=== PATIENT | male | born 1960 ===

== ENCOUNTER 2016-12-24 18:53 | Emergency (ER) | payer OTHER ==
[2016-12-24 19:53] VITALS: BP 127/81
--- NOTE | 2016-12-24 20:06 | UC ---
Elbow Pain - HPI Summary HPI Summary: complaint of right swollen elbow that started today elbow is painful denies any trauma constantly painful aching pain that is non radiating pain painful when he leans on something denies fever hasn't taken any medication for symptoms - History of Current Complaint Chief Complaint: UCUpperExtremity Stated Complaint: ELBOW COMPLAINT Time Seen by Provider: 12/24/16 19:58 Hx Obtained From: Patient - Allergies/Home Medications Allergies/Adverse Reactions: Allergies Allergy/AdvReac Type Severity Reaction Status Date / Time No Known Allergies Allergy Verified 12/24/16 19:46 Home Medications: Home Medications Aspirin Low Dose CHEW TAB* [Aspirin Low Dose TAB*] 81 mg PO DAILY 12/24/16 [ History Confirmed 12/24/16] Ilqkzdbdfvm-Deezofkkjmq-Kqo C- [Glucosamine Chondroitin] 1 tab PO DAILY [History Confirmed 12/24/16] Multivitamins/Minerals TAB* [Thera M Plus TAB*] 1 tab PO DAILY 12/24/16 [ History Confirmed 12/24/16] Omeprazole CAP* [Prilosec CAP* 20 MG] 40 mg PO DAILY 12/24/16 [History Confirmed 12/24/16] Vitamin B Complex TAB* [Complex B-100*] 1 tab PO DAILY 12/24/16 [History Confirmed 12/24/16] PMH/Surg Hx/FS Hx/Imm Hx Previously Healthy: Yes - sleep apnea - Surgical History Surgical History: None - Family History Known Family History: Positive: Cardiac Disease - father, Diabetes - father, Other - copd - mother - Social History Occupation: Employed Full-time Lives: With Family Alcohol Use: None Substance Use Type: None Smoking Status (MU): Never Smoked Tobacco Review of Systems Constitutional: Negative Skin: Negative Eyes: Negative ENT: Negative Respiratory: Negative Cardiovascular: Negative Gastrointestinal: Negative Genitourinary: Negative Motor: Negative Neurovascular: Negative Musculoskeletal: Other: - righ elbow pain Neurological: Negative Psychological: Negative All Other Systems Reviewed And Are Negative: Yes Physical Exam Triage Information Reviewed: Yes Appearance: No Pain Distress, Well-Nourished Vital Signs: Initial Vital Signs Temp 98.2 F 12/24/16 19:47 Pulse 77 12/24/16 19:47 Resp 16 12/24/16 19:47 BP 127/81 12/24/16 19:47 Pulse Ox 97 12/24/16 19:47 Vital Signs Reviewed: Yes Eyes: Positive: Conjunctiva Clear ENT: Positive: Pharynx normal, TMs normal Neck: Positive: No Lymphadenopathy Respiratory: Positive: Lungs clear, Normal breath sounds, No respiratory distress, No accessory muscle use Cardiovascular: Positive: RRR, No Murmur, Pulses Normal Abdomen Description: Positive: Nontender, Soft Bowel Sounds: Positive: Present Musculoskeletal: Positive: Other: - RUE-No bony deformities, tenderness and ertyema, edema warm to touch in olecranon, medial, lateral epicondyle elbow. Full ROM upon flexion and extension. Neurological: Positive: Alert Psychological Exam: Normal Skin Exam: Normal Procedures - Incision and Drainage Anesthesia: Lidocaine Instrument(s): Needle Packing: Other - right elbow cleansed with betadyne, lidocaine injected into elbow, 18G needle inserted into bursa but no fluid expressed, pt tolerated well , pressure dressing applied, procedure completed by Dr Hernández Elbow Pain Course/Dx - Differential Dx/Diagnosis Differential Diagnosis/HQI/PQRI: Bursitis, Cellulitis, Infection, Joint Effusion Provider Diagnoses: right elbow bursitis Discharge - Discharge Plan Condition: Stable Disposition: HOME Prescriptions: Naproxen TAB* [Naprosyn 250 mg TAB*] 500 mg PO Q12H #114 tab Patient Education Materials: Elbow Bursitis (ED) Referrals: Danelle Davidson MD [Medical Doctor] - Additional Instructions: Please start naproxen as directed Increase fluids and rest Please review your discharge instructions. If your symptoms do not improve please call your primary care provider or return to urgent care.
[2016-12-24] MEDS ORDERED: Lidocaine 2% W/EPI 1:100,000* 20 ML MDV INJ ONE (20:12)
== END 2016-12-24 20:58 | disposition home or self-care (01) ==
LOC: UCCORT 18:53
DX: M70.31 Other bursitis of elbow, right elbow (principal); Z79.82 Long term (current) use of aspirin
CPT/HCPCS: 20605; 99202; G0463

== ENCOUNTER 2017-02-14 07:34 | Day surgery (SDC) | payer OTHER ==
[~2017-02-14 07:34] MED LIST: Buffered Lidocaine 0.9% SYRIN* 5 ML/SYR SYRINGE INTRADERM ONE; Dexamethasone IV* 4 MG/ML 1 ML (4 MG) IV SLOW PU ONE; Famotidine IV* 10 MG/ML 2 ML (20 mg) IV ONE; Scopolamine 1.5 mg* PATCH TRANSDERM ONE
[2017-02-14] MEDS ORDERED: Famotidine IV* 10 MG/ML 2 ML (20 mg) ONE (07:58)
[2017-02-14] MEDS ORDERED: Dexamethasone IV* 4 MG/ML 1 ML (4 MG) ONE (07:58)
[2017-02-14] MEDS ORDERED: Scopolamine 1.5 mg* PATCH ONE (07:58)
[2017-02-14] MEDS ORDERED: ceFAZolin 2 GM PREMIX(*) 2 GM/50 ML BAG IVPB ONE (07:58)
[2017-02-14] MEDS ORDERED: Bupivacaine 0.25% SDV* 30 ML ONE (09:42)
[2017-02-14] MEDS ORDERED: Lidocaine 2% PF * 5 ML VIAL ONE (09:51)
[2017-02-14] MEDS ORDERED: Propofol* 10 MG/ML 20 ML BTL IV PUSH ONE (09:51)
[2017-02-14] MEDS ORDERED: fentaNYL* 50 MCG/ML 2 ML VIAL (100 MCG VIAL) ONE ×3 (09:51→11:46)
[2017-02-14] MEDS ORDERED: Ketorolac INJ* 30 MG/ML 1 ML VIAL ONE (10:15)
[2017-02-14] MEDS ORDERED: Ondansetron INJ* 2 MG/ML VIAL ONE (10:31)
[2017-02-14] MEDS ORDERED: oxyCODONE/Acetamin 5/325 MG* TAB PO PRN (10:39)
[2017-02-14] MEDS ORDERED: fentaNYL* 50 MCG/ML 2 ML VIAL (100 MCG VIAL) IV PRN (10:39)
[2017-02-14] MEDS ORDERED: PROCHLORPERAZINE INJ 5 MG/ML 2 ML VIAL IV PRN (10:39)
[2017-02-14] MEDS ORDERED: PROCHLORPERAZINE INJ 5 MG/ML 2 ML VIAL ONE (13:01)
[2017-02-14] MEDS ORDERED: traMADol TAB* 50 MG ONE (13:31)
[2017-02-14] MEDS ORDERED: Acetaminophen TAB* 325 MG ONE (13:31)
[2017-02-14 14:00] VITALS: BP 144/81
--- NOTE | 2017-02-15 00:37 | OP ---
DATE OF OPERATION: 02/14/17 - [facility] DATE OF : 64 SURGEON: Morgan Aguirre MD MAC DEVELOPER: SHANA Barr. An assistant laboratory director was needed for the entirety of the procedure to aide with positioning the arm and retraction. ANESTHESIOLOGIST: Dr. Patrick Rubio. ANESTHESIA: General. PRE-OP DIAGNOSIS: Right olecranon bursitis and triceps tendon enthesopathy. POST-OP DIAGNOSES: 1. Right elbow olecranon bursitis. 2. Bone cyst, right olecranon process. 3. Partial central detachment of distal triceps tendon. OPERATIVE PROCEDURE: 1. Right elbow olecranon bursectomy. 2. Curettage of right olecranon process bone cyst. 3. Repair of distal triceps tendon central partial detachment. INDICATIONS: Brady has had over a month of severe posterior right elbow pain. It is very difficult for him to move the elbow. He had developed a large olecranon bursitis in association with this. He had a couple of attempted aspirations by his primary care physician. He had seen my partner, Dr. Merritt, who had started him on antiinflammatory medications and had him compress and ice the area. He was supposed to follow up with me in a few weeks, but he then come in the following week after seeing Dr. Merritt because his pain was severe and he wanted to be seen sooner. His x-rays had shown some enthesopathy at the triceps insertion and the olecranon process. I had talked to him about doing a right elbow olecranon bursectomy and exploring the distal part of the triceps tendon and repairing anything as needed. He elected to proceed. ESTIMATED BLOOD LOSS: 5 mL. COMPLICATIONS: None. FINDINGS: After the bursectomy was performed, there was a bone cyst readily apparent in the posterior olecranon process. I curetted the contents of the cyst out and there was a central full thickness detachment of the triceps tendon. The triceps tendon was clearly still attached medially and laterally. DESCRIPTION OF PROCEDURE: Brady was seen in the preoperative holding area. The correct site, side, and procedure were identified. We came back to the operating room, the arm was prepped and draped in usual fashion. A formal time- out was performed. He had been placed in the lateral decubitus position with the arm draped over a roll of well-secured pillows. All the appropriate bony prominences and nerves were well padded. I began by exsanguinating the extremities. The Esmarch and the tourniquet was inflated to 250 mmHg. I then the dermis from the underlying bursal tissue, which had the appearance of being very chronically inflamed. I worked medially and laterally, taking care medially not to violate the deep fascia and keep the ulnar nerve protected. The olecranon bursa was excised in its entirety right off the periosteum of the proximal ulna and then as I continued on proximally, the tissue became very degenerative became more organized and healthy appearing, again more proximally as I got past the elbow joint to the more proximal healthy triceps tendon fascia. Once I had fully excised the olecranon bursa, this was passed off as specimen. I then cleaned things up a little bit more distally and there was a significant amount of soft tissue protruding from a lesion in the olecranon process. I took the curette out and I cleaned out the contents of this cyst and it was centrally located in the olecranon process and tracked back proximally towards the tip of the olecranon. It did not go deep towards the articular surface, but it was 1 cm in its width and about 1 cm to 1.5 cm deep. I completely curetted this out until there was no cyst contents left. I then brought in the mini C-arm and I visualized the area of the cyst on the fluoroscopy using a freer to ilene the proximal and distal aspects of the cyst. I then passed my freer just superficial to the cyst on the cortex of the olecranon and passed it all the way around down towards the joint. There was a clear 1 to 2 cm width where the triceps tendon had fully detached. I went ahead and cleaned this all up sharply until I had good visualization. I then took my 2.5 drill bit and made 2 parallel drill holes from the proximal aspect of the olecranon out through the posteromedial and posterolateral cortices of the ulna distally in preparation for repair of the triceps tendon. I then took two #2 FiberWire sutures and placed 2 whip stitches several centimeters up and back down the triceps tendon. I then took 1 tail of my medial whip stitch and 1 tail of my lateral whip stitch and passed them down one bone tunnel and then took the other two tails and passed them down the other bone tunnel. I then had my assistant laboratory director hold the arm out in extension while I tightened the sutures and tied them off sequentially. This brought the distal aspect of the triceps down into excellent apposition olecranon process. I used an 0 Ti- Cron to place a couple of akjuln-hp-lyfen sutures to the adjacent periosteum and just to smooth off the superficial margin of the repair. I then looked at the remainder of the bone cyst and made a decision whether or not to harvest, I am not seeing some distal radius bone graft to pack the lesion with. Ultimately, I decided it was not necessary and so I went ahead and irrigated out the wound. The hemostasis was achieved with the Bovie cautery. The subcutaneous tissue was reapproximated with 3-0 Polysorb suture. Skin was closed with 3-0 nylon suture. 0.25% Marcaine was infiltrated into the operative area. The wound was dressed with Xeroform, 4x4, ABD, and then sterile Webril followed by a posterior slab with a lateral buttress. Tourniquet was deflated during the application of the dressings. The hand pinked up immediately. The arm was splinted in just 20 to 30 degrees of flexion of the elbow. The wrist and fingers were left free. He was then woken up and taken to recovery room in stable condition. [id number]/[facility]PS #: [id number] MTDD
--- NOTE | 2017-02-16 15:45 | RAD ---
INDICATION: RIGHT elbow surgery. COMPARISON: February 01, 2017 radiographs. TECHNIQUE: 22 seconds fluoroscopy. FINDINGS: Spot images document a metallic instrument at the level of the rectum on process. IMPRESSION: Procedural fluoroscopy. CPT II Codes: 6045F
[2017-02-17] MEDS ORDERED: Scopolomine PATCH Remove* 1 NOTE MISC PATCH OFF ONE (06:00)
== END 2017-02-14 13:53 | disposition home or self-care (01) ==
LOC: OREAST 07:34
PROVIDERS: ATTEND Orthopaedic Surgery Hand Surgery
DX: M70.21 Olecranon bursitis, right elbow (principal); M85.621 Other cyst of bone, right upper arm; S53.491A Other sprain of right elbow, initial encounter; X58.XXXA Exposure to other specified factors, initial encounter; Y92.9 Unspecified place or not applicable; G47.33 Obstructive sleep apnea (adult) (pediatric)
CPT/HCPCS: 76000; 88304; A9270-GY; J0690; J0780; J1100; J1885; J2405; J2704; J3010

== ENCOUNTER 2017-03-02 06:11 | Inpatient (IN) | payer OTHER ==
[~2017-03-02 06:11] MED LIST changes: -Dexamethasone IV* 4 MG/ML 1 ML (4 MG) IV SLOW PU ONE; -Famotidine IV* 10 MG/ML 2 ML (20 mg) IV ONE; -Scopolamine 1.5 mg* PATCH TRANSDERM ONE; +Sodium Citrate/Citric Acid* 15 ML UDC PO ONE
[2017-03-02] MEDS ORDERED: Buffered Lidocaine 0.9% SYRIN* 5 ML/SYR SYRINGE ONE (06:12)
[2017-03-02] MEDS ORDERED: Sodium Citrate/Citric Acid* 15 ML UDC ONE (06:12)
[2017-03-02] MEDS ORDERED: Bupivacaine 0.25% SDV* 30 ML ONE (07:32)
[2017-03-02] MEDS ORDERED: Lidocaine 2% PF * 5 ML VIAL ONE (07:56)
[2017-03-02] MEDS ORDERED: fentaNYL* 50 MCG/ML 2 ML VIAL (100 MCG VIAL) ONE ×3 (07:56→10:19)
[2017-03-02] MEDS ORDERED: Propofol* 10 MG/ML 20 ML BTL IV PUSH ONE ×2 (07:56→08:33)
[2017-03-02] MEDS ORDERED: Vancomycin(*) 2,000 MG in NS 0.9% 500 ML BAG* 500 ML IVPB ONE (08:00)
[2017-03-02] MEDS ORDERED: DiMENhydriNATE IV* 50 MG/ML VIAL IV PUSH PRN (09:05)
[2017-03-02] MEDS ORDERED: Ketorolac INJ* 30 MG/ML 1 ML VIAL ONE (09:19)
[2017-03-02] MEDS ORDERED: Labetalol IV* 5 MG/ML 20 ML VIAL ONE (09:19)
[2017-03-02] MEDS ORDERED: Ondansetron INJ* 2 MG/ML VIAL ONE (09:19)
[2017-03-02] MEDS ORDERED: Acetaminophen TAB* 325 MG PO PRN (09:52)
[2017-03-02] MEDS ORDERED: traZODone TAB* 50 MG TAB PO PRN (09:52)
[2017-03-02] MEDS ORDERED: Ondansetron INJ* 2 MG/ML VIAL IV PRN (09:52)
[2017-03-02] MEDS ORDERED: Polyethylene Glycol 3350* 17 GM PACKET PO PRN (09:52)
[2017-03-02] MEDS ORDERED: Morphine INJ* 2 MG/ML 1 ML SYRINGE IV PRN (09:52)
[2017-03-02] MEDS ORDERED: Magnesium Hydroxide LIQ* 30 ML UDC PO PRN (09:52)
[2017-03-02] MEDS ORDERED: oxyCODONE TAB* 5 MG TAB PO PRN (09:52)
[2017-03-02] MEDS ORDERED: diPHENhydraMINE IV* 50 MG/ML 1 ml VIAL (BENADRYL) IV PRN (09:52)
[2017-03-02] MEDS ORDERED: Vancomycin(*) 0 MG in NS 0.9% 250 ML* 250 ML IVPB SCH (10:00)
[2017-03-02] MEDS ORDERED: oxyCODONE/Acetamin 5/325 MG* TAB ONE (10:19)
[2017-03-02] MEDS: oxyCODONE/Acetamin 5/325 MG* TAB PO PRN ×4 (10:21→20:38)
[2017-03-02] MEDS: fentaNYL* 50 MCG/ML 2 ML VIAL (100 MCG VIAL) IV PRN ×2 (10:22→10:48)
[2017-03-02] MEDS ORDERED: Vancomycin per Pharmacy* NOTE FOLLOW UP PRN (12:18)
[2017-03-02 14:40] LABS: Hematocrit 35 % (42-52); Hemoglobin 11.8 g/dl (14.0-18.0); Mean Platelet Volume 8 um3 (7.4-10.4)
[2017-03-02 14:58] LABS: EGFR African American 98.6 (>60); EGFR Non-African American 76.7 (>60)
[2017-03-02] MEDS: Vancomycin(*) 1,500 MG in NS 0.9% 250 ML* 250 ML IVPB SCH (17:06)
[2017-03-02] MEDS ORDERED: Cyclobenzaprine TAB* 10 MG ONE (19:44)
[2017-03-02] MEDS ORDERED: Cyclobenzaprine TAB* 10 MG PO PRN (19:56)
[2017-03-03] MEDS: oxyCODONE/Acetamin 5/325 MG* TAB PO PRN ×5 (00:45→20:11)
[2017-03-03] MEDS: Vancomycin(*) 1,500 MG in NS 0.9% 250 ML* 250 ML IVPB SCH (05:06)
[2017-03-03 06:26] LABS: Hematocrit 36 % (42-52); Hemoglobin 12.1 g/dl (14.0-18.0)
[2017-03-03 06:42] LABS: BUN/Creatinine Ratio 15.5 (8-20); EGFR African American 103.3 (>60); EGFR Non-African American 80.4 (>60)
--- NOTE | 2017-03-03 07:32 | OP ---
DATE OF OPERATION: 03/02/17 - ROOM #[id number] DATE OF : 64 SURGEON: Morgan Aguirre MD QUEEN PRODUCER: SHANA Henry ANESTHESIOLOGIST: Dr. Alexander Lieberman. ANESTHESIA: General. PRE-OP DIAGNOSIS: Right elbow surgical wound infection. POST-OP DIAGNOSIS: Right elbow surgical wound infection. OPERATIVE PROCEDURE: Irrigation and debridement of skin, subcutaneous tissue, and tendon, right elbow surgical wound infection. INDICATIONS: Brady underwent olecranon bursectomy with curettage of an olecranon bone cyst and repair of a small central defect in the distal triceps tendon a little over 2 weeks ago. He had done well initially, but over the last few days developed he fevers and chills and then the wound started draining. He came to the office. I numbed him up and opened up the wound more and I started him on Bactrim yesterday. He has done a couple of soaks in the meantime. The elbow is feeling much better. He said he slept very well last night. He is now brought for I and D of the elbow wound. EBL: 15 mL. COMPLICATIONS: None. FINDINGS: As expected. DESCRIPTION OF PROCEDURE: Brady was seen in the preoperative holding area. The correct side, site, and procedure were identified. We came back to the operating room, anesthesia was induced, he was positioned in the lateral decubitus position with the right arm draped over an arm cash. The arm was prepped and draped in the usual fashion and formal time-out was performed. The arm was gravity exsanguinated and then tourniquet inflated to 250 mmHg. The distal aspect of the incision where he had started to drain where I had I- and-D'd it out was ellipsed out. I had just taken a millimeter or two of skin on either side of the wound back to nice, clean, healthy skin edges. Proximal aspect of the incision was reopened with the #15 blade and with the curved Castro scissors. The entirety of the wound was curetted removing all loose tissue of any questionable viability. The bone cyst was curetted out again. There was some tracking proximally through the subcutaneous tissue and so I opened up a little more of the incision proximally and made sure I adequately debrided that at least a little bit more distally as well just to make sure everything was adequately unroofed and debrided. The wound was then irrigated with 6 L of saline using the cysto-tubing. Once all the tissue was completely clean, I examined the sutures used it in the repair. It looked like they could be removed and the triceps would function adequately. I did not want to risk having them serve as a nidus for any further infection, so I went ahead and removed those braided FiberWire sutures. The medial and lateral portions of the distal triceps tendon were still clearly attached and he had had good triceps function preoperatively, so I felt fine removing those in light of the infection. The wound was again irrigated. Everything looked clean and all the tissue remaining looked nice and viable and healthy. I therefore closed the skin loosely with 3-0 Nylon suture. A medium Hemovac drain was placed prior to closure. The wound was dressed with Xeroform, 4x4s, ABD, and a posterior slab with a lateral buttress was placed. Tourniquet was deflated during the application of dressings. The hand pinked up immediately. He was then woken up and taken to recovery room in stable condition. POSTOPERATIVE PLAN: We'll keep him for IV vancomycin. His cultures from yesterday show gram positive cocci. I'll have Dr. Morales with ID see him. [id number]/[facility] #: [id number] [facility] HOSPITALJyoti
[2017-03-03] MEDS: Vitamin B Complex TAB PO SCH (08:56)
[2017-03-03] MEDS: Omeprazole CAP* 20 MG PO SCH (08:56)
--- NOTE | 2017-03-03 09:20 | PN ---
Progress Note - Progress Note Date of Service: 03/03/17 SOAP: Subjective: 57 y/o male s/p R elbow I&D by Dr. Aguirre s/p cyst rxn ~2 weeks prior. Patient states doing well overall, pain controlled with pain medications, + swelling with standing, moving at R hand. No numbness, loss of sensation. no questions. VSS afebrile overnight Objective: General- Well appearing, walking around room. MSK- Splint, surgical dressing inplace, no drainage noted. Surgical drain removed without difficulty, tip intact. + full ROM fingers, thumb. cap refill <2secs. rad, ulnar pulses 2+, sensation grossly intact R UE. Vital Signs Temp 98.3 F 03/03/17 07:29 Pulse 83 03/03/17 07:29 Resp 18 03/03/17 07:29 BP 137/80 03/03/17 07:29 Pulse Ox 100 03/03/17 07:29 Intake & Output 03/02/17 03/03/17 03/03/17 18:59 06:59 18:59 Intake Total 1975 1536 Output Total 350 1950 Balance 1625 -414 Intake: IV Fluids 900 551 LR 400 551 VANCOMYCIN, 2GMS 500 IVPB 285 ABX - VANCOMYCIN 285 Oral 1075 700 Output: Hemovac Amount #1 50 Urine 350 1900 Other: Estimated Void Large # Voids 1 Laboratory Results - last 24 hr 03/02/17 03/02/17 03/03/17 14:21 14:21 05:52 Hgb 11.8 L 12.1 L Hct 35 L 36 L Plt Count 231 MPV 8 Sodium Potassium Chloride Carbon Dioxide Anion Gap BUN 20 Creatinine 1.01 Est GFR ( Amer) 98.6 Est GFR (Non-Af Amer) 76.7 BUN/Creatinine Ratio Glucose Calcium 03/03/17 05:52 Hgb Hct Plt Count MPV Sodium 134 Potassium 4.0 Chloride 101 Carbon Dioxide 27 Anion Gap 6 BUN 15 Creatinine 0.97 Est GFR ( Amer) 103.3 Est GFR (Non-Af Amer) 80.4 BUN/Creatinine Ratio 15.5 Glucose 159 H Calcium 9.0 Assessment: Stable 57 y/o male s/p R elbow I&D by Dr. Aguirre Plan: - DVT prophlyaxis- lovenox in house - Infiection- Current ABX vancomycin. Consult placed for Dr. Guadalupe, cultures pending. - Continue current pain regimen - Possible D/C today pending on ID recs. Active Medications Generic Name Dose Route Start Last Admin Trade Name Freq PRN Reason Stop Dose Admin Acetaminophen 650 mg 03/02/17 09:52 Tylenol Tab* PO Q4H PRN PAIN OR TEMPERATURE Cyclobenzaprine HCl 10 mg 03/02/17 19:56 03/03/17 05:05 Flexeril Tab* PO 10 mg Q8H PRN Administration SPASMS - MUSCLE Diphenhydramine HCl 25 mg 03/02/17 09:52 Benadryl Iv* IV Q6H PRN itching Enoxaparin Sodium 40 mg 03/03/17 10:00 Lovenox(*) SUBCUT Q24H WESTLEY Lactated Ringer's 1,000 mls @ 100 mls/hr 03/02/17 10:00 03/02/17 13:28 Lactated Ringers 1000 Ml Bag* IV 100 mls/hr PER RATE WESTLEY Administration Vancomycin HCl 1,500 mg/ 250 mls @ 166.667 mls/hr 03/02/17 17:00 03/03/17 05: 06 Sodium Chloride IVPB 166.667 mls/hr Q12H WESTLEY Administration Magnesium Hydroxide 30 ml 03/02/17 09:52 Milk Of Magnesia Liq* PO Q6H PRN constipation Morphine Sulfate 2 mg 03/02/17 09:52 Morphine Inj (Syringe)* IV Q2H PRN PAIN - SEVERE Omeprazole 40 mg 03/03/17 09:00 03/03/17 08:56 Prilosec Cap* PO 20 mg QAM WESTLEY Administration Ondansetron HCl 4 mg 03/02/17 09:52 Zofran Inj* IV Q6H PRN nausea Oxycodone HCl 10 mg 03/02/17 09:52 Roxycodone Tab* PO Q4H PRN PAIN - SEVERE Oxycodone/Acetaminophen 1 tab 03/02/17 09:52 03/03/17 05:05 Percocet 5/325 Tab* PO 1 tab Q4H PRN Administration PAIN Oxycodone/Acetaminophen 2 tab 03/02/17 09:52 03/02/17 14:54 Percocet 5/325 Tab* PO 2 tab Q4H PRN Administration PAIN Pharmacy Consult 1 note 08/23/17 12:18 Vancomycin Per Pharmacy* FOLLOW UP . PRN PER PROTOCOL Pharmacy Profile Note 1 note 03/04/17 04:30 Vancomycin Trough Check FOLLOW UP 03/04/17 04:31 0430 ONE Polyethylene Glycol/Electrolytes 17 gm 03/02/17 09:52 Miralax* PO DAILY PRN Constipation Trazodone HCl 25 mg 03/02/17 09:52 Desyrel Tab* PO BEDTIME PRN insomnia Vitamin B Complex/Vitamin E 1 tab 03/03/17 09:00 03/03/17 08:56 Complex B-100* PO 1 tab QAM WESTLEY Administration
[2017-03-03] MEDS: Enoxaparin(*) 40 MG/0.4 ML SYR SUBCUT SCH (09:50)
[2017-03-03] MEDS: ceFAZolin 2 GM PREMIX (*) 100 ML IVPB SCH ×2 (12:17→20:11)
--- NOTE | 2017-03-03 12:33 | CONS ---
CONSULTATION REPORT: DATE OF CONSULTATION: 03/03/17 REQUESTING PHYSICIAN: Dr. Aguirre. CONSULTING SERVICE: Infectious Disease. REASON FOR CONSULTATION: Right elbow infection. IMPRESSION: Status post right elbow olecranon bursectomy, curettage of right olecranon bone cyst, repair of distal triceps tendon detachment complicated by swelling, redness, and drainage at the incision site. Original surgery was February 14. Now status post incision and debridement, removal of suture material. Cultures taken at growing Staph aureus. The operative procedure specimen showed Gram-positive cocci and a Gram stain. The PCR is Staph aureus positive, MRSA negative. RECOMMENDATIONS: Stop vancomycin and start Ancef 2 g IV every 8 hours and he had his drain out today. As long as it is continuing to improve in the next 24 hours, I think it would be reasonable to change him over to oral antibiotic for 14 more days. HISTORY OF PRESENT ILLNESS: This is a 57-year-old male with a recent right elbow surgery as described above. He did well initially and then developed some pain, redness, swelling at the incision site, was seen by Dr. Aguirre who opened up the wound in the office and took a culture, it is growing Staph aureus. He was started on Bactrim the day before he was admitted. He had fevers, chills, and sweats initially as well and those are much better. He came into the hospital, had incision and debridement yesterday. His pain comes and goes, feels heavy at times. It is better with Percocet. He has been walking in the halls. No fevers, chills, or sweats. Eating okay. Otherwise feels well. PAST MEDICAL HISTORY: 1. Right elbow surgery, 02/14/17. 2. Obesity. ALLERGIES: No known drug allergies. MEDICATIONS: 1. Tylenol. 2. Flexeril. 3. Omeprazole. 4. Vancomycin. 5. Percocet. 6. Trazodone p.r.n. SOCIAL HISTORY: He lives outside of [place]. 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 He has no travel or sick contacts. FAMILY HISTORY: No recurrent infections. REVIEW OF SYSTEMS: All negative to a full review of systems except as noted above. PHYSICAL EXAM: Vital Signs: Temperature is 37, heart rate 80, respiratory rate 18, blood pressure 137/80, and O2 sat 100% on room air. In general, he is awake, not in distress. Neurologic: He is oriented x3. Follows all commands. Sensation is intact to light touch in his right hand. HEENT: There is no conjunctival hemorrhage. Oropharynx is without lesions. Neck is supple. Lymph Nodes: There is no inguinal, axillary, or epitrochlear lymphadenopathy. Heart: Regular rate and rhythm without murmurs, rubs, or gallops. Lungs: Clear to auscultation bilaterally. Abdomen: Soft, nontender, nondistended. There are bowel sounds present. Skin: There is no rash or splinter hemorrhages. Musculoskeletal: There is no spine tenderness to palpation. The right arm is casted. The right hand is warm. Sensation is intact. LABORATORY DATA: Hemoglobin 12, creatinine 0.9. Please see impressions and recommendations as outlined above. Thanks for asking me to see Mr. Walters in consultation. [id number]/[facility] #: [id number] [facility]
[2017-03-04] MEDS: oxyCODONE/Acetamin 5/325 MG* TAB PO PRN ×3 (00:15→09:23)
[2017-03-04] MEDS: ceFAZolin 2 GM PREMIX (*) 100 ML IVPB SCH (04:23)
[2017-03-04] MEDS ORDERED: Vancomycin Trough Check NOTE FOLLOW UP ONE (04:30)
[2017-03-04 06:29] LABS: Hematocrit 38 % (42-52)
[2017-03-04] MEDS: Vitamin B Complex TAB PO SCH (09:24)
[2017-03-04] MEDS: Enoxaparin(*) 40 MG/0.4 ML SYR SUBCUT SCH (09:24)
[2017-03-04] MEDS: Omeprazole CAP* 20 MG PO SCH (09:24)
[2017-03-04 10:07] VITALS: BP 128/81
--- NOTE | 2017-03-04 10:52 | PN ---
Progress Note - Progress Note Date of Service: 03/04/17 SOAP: Subjective: 57 y/o male s/p R elbow I&D by Dr. Aguirre s/p cyst rxn ~2 weeks prior. Patient reports feeling better, decreased swelling in R hand, pain decreased and better controlled with PO pain medications. Seen by I&D yesterday, no questions. Objective: General- Well appearing, NAD MSK- Surgical splint in place, no drainage/ odor. Rad, ulnar pulses 2+ b/l, full ROM wrist, fingers, mild pain with thumb ABD. sensation grossly intact R hand. NO LAD axillary, no lymphangitic spread. Laboratory Results - last 24 hr 03/04/17 03/04/17 06:12 06:12 Hgb 13.0 L Hct 38 L Vancomycin Trough < 3.5 Vital Signs Temp 97.5 F 03/04/17 07:31 Pulse 74 03/04/17 07:31 Resp 16 03/04/17 09:23 BP 128/81 03/04/17 07:31 Pulse Ox 97 03/04/17 08:23 Intake & Output 03/03/17 03/04/17 03/04/17 18:59 06:59 18:59 Intake Total 1340 2869 Output Total 700 Balance 640 2869 Intake: IV Fluids 1369 LR 1295 cefazolin 74 Oral 1340 1500 Output: Urine 700 Other: Estimated Void Medium # Bowel Movements o # Voids 3 Assessment: Stable 57 y/o male s/p R elbow I&D by Dr. Aguirre s/p cyst rxn ~2 weeks prior. Plan: - Cleared by ID for D/C, Keflex 500mg PO TID x 2 weeks - Continue splint - Follow up with Dr. Aguirre within 5 days for wound check - Percocet as needed for pain control Active Medications Generic Name Dose Route Start Last Admin Trade Name Freq PRN Reason Stop Dose Admin Acetaminophen 650 mg 03/02/17 09:52 Tylenol Tab* PO Q4H PRN PAIN OR TEMPERATURE Cephalexin HCl 500 mg 03/04/17 11:00 Keflex Cap* PO 03/04/17 11:01 ONCE ONE Cyclobenzaprine HCl 10 mg 03/02/17 19:56 03/03/17 05:05 Flexeril Tab* PO 10 mg Q8H PRN Administration SPASMS - MUSCLE Diphenhydramine HCl 25 mg 03/02/17 09:52 Benadryl Iv* IV Q6H PRN itching Enoxaparin Sodium 40 mg 03/03/17 10:00 03/04/17 09:24 Lovenox(*) SUBCUT 40 mg Q24H [place] Administration Lactated Ringer's 1,000 mls @ 100 mls/hr 03/02/17 10:00 03/03/17 20:17 Lactated Ringers 1000 Ml Bag* IV 100 mls/hr PER RATE [place] Administration Cefazolin Sodium/Dextrose 100 mls @ 200 mls/hr 03/03/17 12:00 03/04/17 04:23 Kefzol 2 Gm Premix(*) IVPB 200 mls/hr Q8H [place] Administration Magnesium Hydroxide 30 ml 03/02/17 09:52 Milk Of Magnesia Liq* PO Q6H PRN constipation Morphine Sulfate 2 mg 03/02/17 09:52 Morphine Inj (Syringe)* IV Q2H PRN PAIN - SEVERE Omeprazole 40 mg 03/03/17 09:00 03/04/17 09:24 Prilosec Cap* PO 20 mg QAM [place] Administration Ondansetron HCl 4 mg 03/02/17 09:52 Zofran Inj* IV Q6H PRN nausea Oxycodone HCl 10 mg 03/02/17 09:52 Roxycodone Tab* PO Q4H PRN PAIN - SEVERE Oxycodone/Acetaminophen 1 tab 03/02/17 09:52 03/03/17 05:05 Percocet 5/325 Tab* PO 1 tab Q4H PRN Administration PAIN Oxycodone/Acetaminophen 2 tab 03/02/17 09:52 03/04/17 09:23 Percocet 5/325 Tab* PO 2 tab Q4H PRN Administration PAIN Polyethylene Glycol/Electrolytes 17 gm 03/02/17 09:52 Miralax* PO DAILY PRN Constipation Trazodone HCl 25 mg 03/02/17 09:52 Desyrel Tab* PO BEDTIME PRN insomnia Vitamin B Complex/Vitamin E 1 tab 03/03/17 09:00 03/04/17 09:24 Complex B-100* PO 1 tab QAM [place] Administration <Nayana Negron - Last Filed: 03/04/17 10:44> - Progress Note SOAP: Subjective: []Doing well. I saw Mr. Walters last evening. No complaints, fevers, or chills. Less arm pain. Objective: [] In splint, Neuro intact distally Assessment: []Improving s/p I&D. On IV antibiotics Plan: []Awaiting final cultures. D/C home on antibiotics per Dr. Morales. <Morgan Aguirre - Last Filed: 03/04/17 16:26>
[2017-03-04] MEDS ORDERED: Cephalexin CAP* 500 MG PO ONE (11:00)
--- NOTE | 2017-03-05 03:29 | DS ---
DISCHARGE SUMMARY: DATE OF ADMISSION: 03/02/17 DATE OF DISCHARGE: 03/04/17 ATTENDING PHYSICIAN: Dr. Morgan Aguirre* (DICTATED BY SHANA AGUILAR) CHIEF COMPLAINT: 1. Right elbow infection. 2. Right elbow surgery, 02/14/17. 3. Obesity. DISCHARGE DIAGNOSES: 1. Right elbow infection, status post incision and drainage. 2. Status post right elbow surgery. 3. Obesity. PROCEDURE: On 03/02/17, the patient underwent an irrigation and debridement of skin, subcutaneous tissue, and tendon of the right elbow surgical wound infection. CONSULTATION: Infectious Disease. BRIEF HISTORY: Mr. Walters is a very pleasant 57-year-old gentleman, status post an olecranon bursectomy with olecranon bone cyst, removal and repair of a small distal triceps tendon defect on 02/14/17, who presented with fevers, wound drainage, and chills. He was taken to the OR on 03/02/17 for an irrigation, incision and drainage of his right surgical wound infection. HOSPITAL COURSE: Mr. Walters is a very pleasant 57-year-old gentleman, who was admitted to [facility] and underwent an incision and drainage of his right elbow surgical wound infection. On postoperative day, he recovered on the surgical short-stay unit. His vitals remained stable throughout his visit, his pain was controlled with p.o. Percocet. He was restarted on his home medications. He had a full range of motion of his right upper extremity wrist and fingers. His DVT prophylaxis was managed in house with Lovenox. He was seen by Infectious Disease and was started on vancomycin and later changed to cefazolin after cultures came back positive for Staph aureus. By postoperative day 2, he was orthopedically and medically stable for discharge to go home. PHYSICAL EXAMINATION: General: The patient is in no acute distress, resting comfortably. Alert and oriented. Vital Signs: On date of discharge, temperature 97.5, pulse rate 74, respirations 16, O2 saturation on room air 97% , blood pressure 128/81. Examination of the right upper extremity shows a splint in place without any signs of drainage and no odor. There is no axillary lymphadenopathy and no lymphangitic spreading noted either proximally or distally to the splint. The patient has full range of motion of right wrist and right fingers with some pain with abduction. Radial ulnar pulses 2+. Sensation grossly intact on right upper extremity. Mild swelling noted, right hand. LABORATORY DATA: On date of discharge: H and H of 13.0 and 38. DISCHARGE MEDICATIONS: 1. Tylenol 650 mg p.o. q.4 hours p.r.n., not to exceed 4000 mg in a day. 2. Prilosec 40 mg p.o. q.a.m. 3. Vitamin B complex 1 tablet p.o. q.a.m. 4. Percocet 1 to 2 tablets every 4 hours as needed for pain, 5/325 mg. 5. ASA 81 mg p.o. q.a.m. 6. Cephalexin 500 mg p.o. t.i.d. x14 days. 7. Colace 100 mg p.o. daily p.r.n. 8. Glucosamine 2 tablets p.o. q.a.m. 9. Ibuprofen 800 mg p.o. q.6 hours p.r.n. 10. Daily multivitamin 1 tablet p.o. q.a.m. CONDITION ON DISCHARGE: Stable. DISCHARGE INSTRUCTIONS: Mr. Walters is a very pleasant 57-year-old gentleman, postoperative day 2, status post left surgical wound incision and drainage, which was uncomplicated. He is orthopedically and medically stable for discharge home. His labs and vital signs are stable. He will restart his home medications. He will take Keflex 500 mg p.o. t.i.d. for 14 days per Infectious Disease recommendation. He will remain in his splint and use a sling for comfort. He will follow up with Dr. Aguirre in approximately 5 days and will make an appointment with his office. He will take Percocet for pain control and Colace as needed for constipation. Should he develop fever, increasing pain , redness or swelling, he was educated to call the office immediately. He had no other questions or concerns. SHANA AGUILAR [id number]/[id number] #: [id number] MTDD
== END 2017-03-04 12:20 | disposition home or self-care (01) | DRG 711 ==
LOC: AA 06:11 → SSU 09:35
PROVIDERS: ADMIT Orthopaedic Surgery Hand Surgery; ATTEND Orthopaedic Surgery Hand Surgery
PROC: 0L9 Tendons, Drainage (ICD-10-PCS; principal; 2017-03-02 07:45)
DX: T81.4XXA Infection following a procedure, initial encounter (principal); B95.61 Methicillin susceptible Staphylococcus aureus infection as the cause of diseases classified elsewhere; E66.9 Obesity, unspecified; K21.9 Gastro-esophageal reflux disease without esophagitis; G47.33 Obstructive sleep apnea (adult) (pediatric); Z68.34 Body mass index [BMI] 34.0-34.9, adult; Z79.82 Long term (current) use of aspirin; Z87.11 Personal history of peptic ulcer disease; Z83.3 Family history of diabetes mellitus; Z82.5 Family history of asthma and other chronic lower respiratory diseases; Z87.891 Personal history of nicotine dependence; Z82.49 Family history of ischemic heart disease and other diseases of the circulatory system
CPT/HCPCS: 36415; 80048; 80202; 82565; 84520; 85014; 85018; 85049; 87070; 87073; 87205; 87640; 87641; A9270-GY; J0690; J1650; J1885; J2405; J2704; J3010; J3370